=== PATIENT | male | born 1975 | race Caucasian/White ===

== ENCOUNTER → 2021-06-11 | Outpatient (CLI) | payer BC ==
[~2021-06-11] VITALS: Ht 172.7 cm; Wt 109.9 kg
[~2021-06-11] MED LIST: ATIVAN 1MG T1 MG/TAB PO; CRESTOR 10MG10 MG PO; DEPAKOTE 250MG250 MG PO; FLEXERIL 1010 MG/TAB PO; INDERAL80 MG PO; LITHIUM 30300 MG/CAP PO; MOBIC15 MG PO; NEURONTIN300 MG/CAP PO; NORCO 325 MG-101 TAB PO; OXY IR5 MG PO; PROTONIX20 MG PO; RISPERDAL4 MG PO; SEROQUEL 200MG200 MG PO; TENORMIN100 MG PO; ZYRTEC 10MG10 MG PO
[2021-06-11 13:12] VITALS: BP 147/88; PULSE 96; TEMP 97.9
[2021-06-11 14:04] VITALS: BP 134/77; PULSE 90
== END ==
LOC: COL.RAD 12:30
DX: M48.061 Spinal stenosis, lumbar region without neurogenic claudication (principal); M47.816 Spondylosis without myelopathy or radiculopathy, lumbar region; M40.46 Postural lordosis, lumbar region
CPT/HCPCS: J2405; J2704